=== PATIENT | male | born 1995 | race Caucasian/White ===

== ENCOUNTER 2023-05-31 13:53 | Outpatient (REF) | payer BC, SELFPAY ==
[2023-06-05 16:06] LABS: Acrosom Defect 11.5 %; Appearance Normal; Container Type 50 mL Conical; Grade 2.5 (>=2.5); Head Shape Abnormal 16.5 %; Motile/Ejaculate 12.3 x10(6) (>=9.0); Motile/mL 4.1 x10(6) (>=6.0); Motility 17 % (>=40); Sperm/mL 24.4 x10(6) (>=15.0); Study Type Semen; Supravital Stain 32 % live (>=58); WBC/mL 0.24 x10(6) (<1.00); pH 7.5 (>=7.2)
== END 2023-05-31 13:54 | disposition home or self-care (01) ==
LOC: LBN 13:53
PROVIDERS: PCP Nurse Practitioner Family; Visit Provider Urology
DX: I86.1 Scrotal varices (principal)
CPT/HCPCS: 89240; 89310

== ENCOUNTER 2024-12-30 15:05 | Outpatient (REF) | payer OTHER, SELFPAY | END 2024-12-30 15:06 | disposition home or self-care (01) | LOC: LBN 15:05 | PROVIDERS: PCP Nurse Practitioner Family; Visit Provider Nurse Practitioner Family | DX: Z86.79 Personal history of other diseases of the circulatory system (principal); N45.1 Epididymitis; N50.819 Testicular pain, unspecified | CPT/HCPCS: 89240; 89310 ==